=== PATIENT | male | born 1975 | race Caucasian/White ===

== ENCOUNTER → 2021-03-15 | Outpatient (CLI) | payer BC ==
[2016-07-10 12:06] VITALS: BP 122/77
[~2021-03-15] MED LIST: ASPI-482 PO; CARV12.5 PO; DILT240C2 PO; FLEC100T PO; FLEC150T PO; LISI-517 PO; METO-269 PO; METO25TA4 PO; RIVA10TA PO; RIVA15TA PO
--- NOTE | 2021-03-16 16:08 | SLEEP ---
DATE OF STUDY: 03/15/2021 POLYSOMNOGRAM REPORT OBJECTIVE: The patient is a 45-year-old male with excessive somnolence, insomnia, restless legs symptoms, awakening short of air. Height 6 feet 3 inches, weight 290 pounds, body mass index 36. [place] sleep score 7. INTERPRETATION: Sleep architecture is characterized by a sleep efficiency of 39% across the 7.8 hours of recording time. Sleep onset latency is 41.5 minutes. There is a decreased amount of REM sleep. Respiratory monitoring shows a total of 113 events for an apnea-hypopnea index of 36.7 events per hour of sleep. The vast majority of these events are obstructive in nature. The minimum oxygen saturation is 83%. The patient is started on CPAP during the study and at a setting of 11 cm, he continues to have an apnea-hypopnea index of 19.1 events per hour of sleep. Because of the need for a split night study, time run out before further CPAP titration could be accomplished. Periodic limb movements of sleep are not evident on this study. Sinus tachycardia is observed. IMPRESSION: Abnormal polysomnogram showing obstructive sleep apnea and hypopnea with an attempt to titrate CPAP. At 11 cm, he continued to have an unacceptable amount of apnea. RECOMMENDATIONS: 1. The patient should return to the lab for further CPAP and BiPAP titration. 2. He should avoid sedatives and alcohol and pursue weight loss. Thank you for letting us help with the patient's care. HA/HONG DR: Tari TID: [id number] CC: MIKE NINA MD, SASHA HANNA MD
== END ==
LOC: SLPLAB 18:51
PROVIDERS: ATTEND Internal Medicine Cardiovascular Disease
DX: G47.33 Obstructive sleep apnea (adult) (pediatric) (principal); I48.0 Paroxysmal atrial fibrillation
CPT/HCPCS: 95810